=== PATIENT | male | born 1960 | race Caucasian/White ===

== ENCOUNTER 2019-08-19 07:50 | Emergency (ER) | payer OTHER ==
[~2019-08-19] VITALS: Ht 193 cm; Wt 90.7 kg
[~2019-08-19 07:50] MED LIST: CIPR500T94 PO; DIPH1TAB PO; HYDR-2155 PO; LISI1TAB19 PO; METR500T PO; ONDA4TAB10 PO
[2019-08-19] MEDS ORDERED: ONDANSETRON PF 4 MG/2 ML VIAL. IVP ONE (08:15)
[2019-08-19] MEDS ORDERED: ONDANSETRON PF 4 MG/2 ML VIAL. ONE (08:18)
--- NOTE | 2019-08-19 08:21 | PHYS DOC ---
Past History Past Medical History: DVT, Hypertension, Other Past Surgical History: Tonsillectomy, Other Alcohol Use: None Drug Use: None Adult General Chief Complaint Chief Complaint: facial injury HPI HPI Patient is a 59-year-old male who presents with facial lacerations after falling while coming out of a deer stand. Patient indicates that he had slipped and struck his face and jaw on metal steps. Patient states that he has severe pain in his jaw on the right-hand side as well as the center of the jaw. He also complains of headache. Patient states that he did lose what he considered to be a large amount of blood. He is on Xarelto due to history of blood clots. Patient does admit to some lightheadedness.[] Review of Systems Review of Systems Constitutional: Denies fever or chills [] Eyes: Denies change in visual acuity, redness, or eye pain [] Respiratory: Denies cough or shortness of breath [] Cardiovascular: No additional information not addressed in HPI [] Integument: Positive facial lacerations[] Neurologic: Complains of headache without focal weakness or sensory changes [] All other systems were reviewed and found to be within normal limits, except as documented in this note. Allergies Allergies Allergies Coded Allergies Type Severity Reaction Last Updated Verified Iodinated Contrast Media - IV Dye Allergy Intermediate Rash 04/15/15 Yes Physical Exam Physical Exam Constitutional: Well developed, well nourished, no acute distress, non-toxic appearance. [] HENT: Normocephalic, with 2 lacerations to the right jaw line in shape of a flap . More cephalad laceration measures total of 4 cm and extends into subcutaneous tissue with fairly sharp margins. The second laceration measures approximately 4.5 cm and extends into subcutaneous tissue with fairly sharp margins. No obvious dental injury is noted on exam and no malocclusion is noted. Bilateral external ears normal, oropharynx moist, no oral exudates, nose normal. [] Eyes: PERRLA, EOMI, conjunctiva normal, no discharge. [] Neck: Normal range of motion, no tenderness, supple. [] Cardiovascular: Regular rate and rhythm[] Lungs & Thorax: Bilateral breath sounds clear to auscultation [] Abdomen: Bowel sounds normal, soft, no tenderness. [] Skin: Lacerations as noted above. [] Extremities: No tenderness, no cyanosis, no clubbing, ROM intact. [] Neurologic: Alert and oriented X 3, no focal deficits noted. [] EKG EKG [] Radiology/Procedures Radiology/Procedures [] Impressions: CT HEAD AND MAXILLOFACIAL WO, CT CERVICAL SPINE WO CONTRAST History: Fall. Pain. Comparison: None. Technique: Noncontrast CT imaging was performed of the head, maxillofacial and cervical spine. Coronal and sagittal reconstructions were performed. Exposure: One or more of the following individualized dose reduction techniques were utilized for this examination: 1. Automated exposure control 2. Adjustment of the mA and/or kV according to patient size 3. Use of iterative reconstruction technique. Findings: Head CT: No intracranial hemorrhage. No hydrocephalus. CSF prominence of the right anterior middle intracranial fossa, may indicate arachnoid cyst. Prominent dural calcifications. No acute calvarial fracture. Maxillofacial CT: Right lateral perimandibular soft tissue injury with laceration and swelling. No acute maxillofacial fracture. Imaged orbits are unremarkable. Bilateral inferior maxillary sinus mucosal thickening. Mastoid air cells are clear. Cervical spine CT: Normal vertebral body height and alignment. No fracture. Mild degenerative disc changes. Mild facet arthropathy. C7 superior endplate irregularity likely due to degenerative changes. No high-grade canal or neuroforaminal narrowing. Soft tissues unremarkable. Impression: CT head and maxillofacial: 1. No acute intracranial abnormality. 2. No acute maxillofacial fracture. 3. Right perimandibular soft tissue swelling and injury. CT cervical spine: 1. No acute fracture or subluxation of the cervical spine. 2. Irregularity of the C7 superior endplate, likely due to degenerative changes. 3. Mild multilevel cervical spondylosis. Electronically signed by: Mundo Miller DO (08/19/2019 9:01 AM) [facility] DICTATED AND SIGNED BY: MUNDO MILLER DO DATE: 08/19/19 0901 Course & Med Decision Making Course & Med Decision Making Pertinent Labs and Imaging studies reviewed. (See chart for details) Laceration Repair by me: Anesthesia: 1% lidocaine with epi locally Location: Right cheek Tendon/Joint/Nerves: No injury Foreign body: None detected after copious irrigation and exploration Technique: A total of 11 Simple Interrupted Sutures utilizing 5-0 Ethilon suture material were placed in laceration #1. A total of 14 simple and or ruptured sutures utilizing 5-0 Ethilon suture material were placed in laceration #2. Complexity: No subcutaneous sutures/mucosal repair/edge excision Post Closure Length: Laceration #1: 4 cm laceration #2: 4.5 cm Patient's bleeding was easily controlled in the department and there is no indic ation of anemia. No evidence of compartment syndrome, neurologic injury, vascular injury, open joint, tendon laceration, or foreign body. Patient is appropriate for outpatient follow up. 48 hour wound check. Scar minimization instructions given. Dragon Disclaimer Dragon Disclaimer This electronic medical record was generated, in whole or in part, using a voice recognition dictation system. Departure Departure: Impression: Primary Impression: Facial laceration Disposition: HOME, SELF-CARE Condition: STABLE Referrals: PCP,UNKNOWN (PCP) Patient Instructions: Facial Laceration Additional Instructions: Return for suture removal in 5 days. Scripts Hydrocodone/Acetaminophen (Hydrocodone-Acetamin 7.5-325) 1 Each Tablet 1 EACH PO Q6HRS PRN for PAIN, #12 TAB Prov: RALPH FALCON Jr., DO 08/19/19 Problem Qualifiers Primary Impression: Facial laceration Encounter type: initial encounter Qualified Codes: S01.81XA - Laceration without foreign body of other part of head, initial encounter RALPH FALCON Jr. DO Aug 19, 2019 08:21
[2019-08-19] MEDS ORDERED: LIDOCAINE 1%/EPI 1:100,000 20 ML VIAL. ONE (08:27)
[2019-08-19 08:29] LABS: BASO # 0.1 x10^3/uL (0.0-0.2); BASO % 1 % (0-3); EOS # 0.1 x10^3/uL (0.0-0.7); EOS % 1 % (0-3); HEMATOCRIT 48.9 % (39.0-53.0); HEMOGLOBIN 17.1 g/dL (13.0-17.5); LYMPH # 0.7 x10^3/uL (1.0-4.8); LYMPH % 8 % (24-48); MEAN CORPUSCULAR HEMOGLOBIN 34 pg (25-35); MEAN CORPUSCULAR HGB CONC 35 g/dL (31-37); MEAN CORPUSCULAR VOLUME 96 fL (79-100); MONO # 0.6 x10^3/uL (0.0-1.1); MONO % 7 % (0-9); NEUT # 7.1 x10^3uL (1.8-7.7); NEUT % 83 % (31-73); PLATELET COUNT 239 x10^3/uL (140-400); RED CELL DISTRIBUTION WIDTH 12.8 % (11.5-14.5); WHITE BLOOD COUNT 8.5 x10^3/uL (4.0-11.0)
[2019-08-19 08:51] LABS: ALBUMIN 4.1 g/dL (3.4-5.0); ALBUMIN/GLOBULIN RATIO 1.2 (1.0-1.7); CALCIUM 9.4 mg/dL (8.5-10.1); CREATININE 1.1 mg/dL (0.7-1.3); GFR 68.3; POTASSIUM 3.8 mmol/L (3.5-5.1); TOTAL BILIRUBIN 1.3 mg/dL (0.2-1.0); TOTAL PROTEIN 7.6 g/dL (6.4-8.2)
--- NOTE | 2019-08-19 09:04 | RAD ---
CT HEAD AND MAXILLOFACIAL WO, CT CERVICAL SPINE WO CONTRAST History: Fall. Pain. Comparison: None. Technique: Noncontrast CT imaging was performed of the head, maxillofacial and cervical spine. Coronal and sagittal reconstructions were performed. Exposure: One or more of the following individualized dose reduction techniques were utilized for this examination: 1. Automated exposure control 2. Adjustment of the mA and/or kV according to patient size 3. Use of iterative reconstruction technique. Findings: Head CT: No intracranial hemorrhage. No hydrocephalus. CSF prominence of the right anterior middle intracranial fossa, may indicate arachnoid cyst. Prominent dural calcifications. No acute calvarial fracture. Maxillofacial CT: Right lateral perimandibular soft tissue injury with laceration and swelling. No acute maxillofacial fracture. Imaged orbits are unremarkable. Bilateral inferior maxillary sinus mucosal thickening. Mastoid air cells are clear. Cervical spine CT: Normal vertebral body height and alignment. No fracture. Mild degenerative disc changes. Mild facet arthropathy. C7 superior endplate irregularity likely due to degenerative changes. No high-grade canal or neuroforaminal narrowing. Soft tissues unremarkable. Impression: CT head and maxillofacial: 1. No acute intracranial abnormality. 2. No acute maxillofacial fracture. 3. Right perimandibular soft tissue swelling and injury. CT cervical spine: 1. No acute fracture or subluxation of the cervical spine. 2. Irregularity of the C7 superior endplate, likely due to degenerative changes. 3. Mild multilevel cervical spondylosis. Electronically signed by: Mark Fonseca DO (08/19/2019 9:01 AM) [facility]
[2019-08-19] MEDS ORDERED: LIDOCAINE 2%/EPI 1:100,000 20 ML VIAL. IJ ONE (09:30)
[2019-08-19] MEDS ORDERED: DIPHTH,PERTUSS(ACELL),TET TOX 0.5 ML DISP.SYRIN. VAX IM ONE (09:30)
[2019-08-19] MEDS ORDERED: HYDR-2763 PO (09:37)
[2019-08-19 10:30] VITALS: BP 131/82
== END 2019-08-19 09:49 | disposition home or self-care (01) ==
LOC: ER 07:50
DX: S01.81XA Laceration without foreign body of other part of head, initial encounter (principal); I10 Essential (primary) hypertension; Z86.718 Personal history of other venous thrombosis and embolism; Z91.041 Radiographic dye allergy status; W01.198A Fall on same level from slipping, tripping and stumbling with subsequent striking against other object, initial encounter; Y93.89 Activity, other specified; Y92.89 Other specified places as the place of occurrence of the external cause; Y99.8 Other external cause status
CPT/HCPCS: 12015; 36415; 70450; 70486; 72125; 80053; 85025; 90471; 90715; 96374; 96375; 99285; J2405; J3010

== ENCOUNTER 2019-08-25 11:07 | Emergency (ER) | payer OTHER ==
[~2019-08-25] VITALS: Ht 193 cm; Wt 90.7 kg
[~2019-08-25 11:07] MED LIST changes: +HYDR-2763 PO
--- NOTE | 2019-08-25 11:34 | PHYS DOC ---
Past History Past Medical History: DVT, Hypertension Past Surgical History: Other Additional Past Surgical Histo: numerous ortho procedures Smoking: Non-smoker Alcohol Use: None Drug Use: None Adult General HPI HPI Patient is a 59-year-old male presents for follow-up of a right facial laceration. 6 days ago he fell out of a tree stand sustaining 2 cuts to the right side of his face. He was seen in clinic on post yesterday and is uncertain whether they were able to get all of the sutures out. A total of 25 were placed between the 2 wounds. He also reports increasing pain and that there was purulent drainage. He was not started on any antibiotics. He denies any fever. He denies any intraoral laceration.[] Review of Systems Review of Systems Constitutional: Denies fever or chills [] Eyes: Denies change in visual acuity, redness, or eye pain [] HENT: Denies nasal congestion or sore throat [] Respiratory: Denies cough or shortness of breath [] Cardiovascular: No chest pain or palpitations[] GI: Denies abdominal pain, nausea, vomiting, bloody stools or diarrhea [] : Denies dysuria or hematuria [] Musculoskeletal: Denies back pain or joint pain [] Integument: See history of present illness[] Neurologic: Denies headache, focal weakness or sensory changes [] Endocrine: Denies polyuria or polydipsia [] All other systems were reviewed and found to be within normal limits, except as documented in this note. Allergies Allergies Allergies Coded Allergies Type Severity Reaction Last Updated Verified Iodinated Contrast Media - IV Dye Allergy Intermediate Rash 04/15/15 Yes Physical Exam Physical Exam Constitutional: Well developed, well nourished, no acute distress, non-toxic appearance. [] HENT: Normocephalic, 2 scabbed over lacerations right face, bilateral external ears normal, oropharynx moist, no oral exudates, nose normal. [] Eyes: PERRLA, EOMI, conjunctiva normal, no discharge. [] Neck: Normal range of motion, no tenderness, supple, no stridor. [] Cardiovascular:Heart rate regular rhythm, no murmur [] Lungs & Thorax: Bilateral breath sounds clear to auscultation [] Abdomen: Not examined. [] Skin: Warm, dry, no erythema, no rash. [] Back: No tenderness, no CVA tenderness. [] Extremities: No tenderness, no cyanosis, no clubbing, ROM intact, no edema. [] Neurologic: Alert and oriented X 3, normal motor function, normal sensory function, no focal deficits noted. [] Psychologic: Affect normal, judgement normal, mood normal. [] EKG EKG [] Radiology/Procedures Radiology/Procedures [] Course & Med Decision Making Course & Med Decision Making Pertinent Labs and Imaging studies reviewed. (See chart for details) ED course and medical decision making: Patient arrived, was placed in bed, and tolerated exam well. His ED course was prolonged due to not having Hodgkin pe roxide readily available. This was obtained, the wound was debrided from the scabbing. No additional sutures were noted to be still within the wound. It is a little bit redder than expected so patient is being placed on prophylactic antibiotics. There is no evidence of a deep space infection. Patient is nontoxic. He is discharged in improved condition with all questions answered.[] Dragon Disclaimer Dragon Disclaimer This electronic medical record was generated, in whole or in part, using a voice recognition dictation system. Departure Departure: Impression: Primary Impression: Visit for wound check Disposition: HOME, SELF-CARE Condition: IMPROVED Referrals: PCP,UNKNOWN (PCP) Patient Instructions: Cellulitis, Suture Removal Additional Instructions: Keep the area clean and dry. You can wash with soap and water. Do not apply peroxide, alcohol, or Betadine. These kill the cells that are trying to heal the wound. Return to the ER if worsening pain, fever of more than 101, purulent drainage, or any other concerns. Scripts Cephalexin (KEFLEX) 500 Mg Capsule 500 MG PO QID for infection for 10 Days, #40 CAP Prov: URBANO MURPHY DO 08/25/19 URBANO MURPHY DO Aug 25, 2019 11:34
[2019-08-25] MEDS ORDERED: CEPH-264 PO (12:49)
== END 2019-08-25 13:00 | disposition home or self-care (01) ==
LOC: ER 11:07
DX: S01.81XD Laceration without foreign body of other part of head, subsequent encounter (principal); Z86.718 Personal history of other venous thrombosis and embolism; I10 Essential (primary) hypertension; Z91.041 Radiographic dye allergy status; X58.XXXD Exposure to other specified factors, subsequent encounter
CPT/HCPCS: 99283